=== PATIENT | male | born 1955 | race Caucasian/White ===

== ENCOUNTER → 2017-04-17 08:42 | Outpatient (CLI) | payer BC ==
[2015-08-30 12:17] VITALS: BMI 28.2
[~2017-04-17 08:42] MED LIST: AMITRIPTYLINE H50 MG PO; FLAGYL500 MG PO; FLOMAX0.4 MG PO; HYDROCHLOROTH12.5 M1 PO; HYDROCODONE-APA1 TAB PO; LEVAQUIN500 MG PO; PRAVACHOL40 MG PO; REGLAN10 MG PO; ROBAXIN-750750 MG PO
== END | disposition home or self-care (01) ==
LOC: D.RAD 08:42
DX: K59.00 Constipation, unspecified (principal)

== ENCOUNTER 2018-03-04 07:40 | Day surgery (SDC) | payer BC ==
[2018-03-03 10:05] LABS: HEMATOCRIT 44.7 % (42.0-54.0); HEMOGLOBIN 15.6 g/dL (13.5-17.5); MCH 30.8 pg (26.0-34.0); MCHC 34.9 g/dL (31.0-37.0); MCV 88.3 fL (80.0-100.0); MEAN PLATELET VOLUME 10.4 fL (7.4-10.4); RBC 5.06 10x6/uL (4.20-6.10); RDW 12.9 % (11.5-14.5); WBC 8.9 10x3/uL (4.8-10.8)
[2018-03-03 10:16] LABS: CALC OSMOLALITY 274 mosm/kg (275-300); CALCIUM 9.2 mg/dL (8.5-10.1); CARBON DIOXIDE 25.6 mmol/L (21.0-32.0); CHLORIDE - SERUM 100 mmol/L (98-107); CREATININE - SERUM 0.9 mg/dL (0.6-1.3); GLUCOSE 145 mg/dL (74-106); POTASSIUM - SERUM 4.2 mmol/L (3.5-5.1); SODIUM 135 mmol/L (136-145); UREA NITROGEN 18 mg/dL (7-18); eGFR NON AFRICAN AMERICAN > 90 mL/min (90-120)
[~2018-03-04] VITALS: Ht 185.4 cm; Wt 97.5 kg
--- NOTE | ~2018-03-04 | OP ---
PATIENT NAME: MICHAEL GARCIA MEDICAL RECORD: [id number] LOCATION:[facility] ADMISSION DATE: SURGEON: BJORN BOBO MD DATE OF OPERATION: 03/04/2018 SURGEON: Bjorn Bobo MD ANESTHESIA: MAC by Dr. Deuce Roberts. PREOPERATIVE DIAGNOSIS: Elevated PSA 2.14, on finasteride. PROCEDURE: Transrectal ultrasound and prostate biopsy. FINDINGS: 43 gram prostate, no hypoechoic areas. SPECIMENS: Prostate biopsy. ESTIMATED BLOOD LOSS: Minimal. CLINICAL HISTORY: This is a 62-year-old male, who has obstructive BPH symptoms. When I first saw him, he had a PSA of 4.02. He did not wish to have a prostate biopsy at that time. I started him on finasteride and tamsulosin for 6 months. His voiding has improved. His latest PSA on finasteride is 2.14. Finasteride tends to cut the PSA in half and therefore if he was not on finasteride, his PSA would be 4.28. We will be obtaining a prostate biopsy to make sure he does not have prostate cancer. He is allergic to LYRICA and OXYCODONE. We gave him Ance[facility] IV destination coordinator to the OR. DESCRIPTION OF PROCEDURE: The patient was given IV sedation. He was placed into dorsal lithotomy position. The transrectal ultrasound probe was introduced and prostate size measurements were obtained. We had a size of 43 grams. Sextant biopsies were obtained with at least 3 cores from each sextant. Once all the biopsies were obtained, the procedure was terminated. The patient was brought to the preoperative holding area and he will be going home today. I will see him in followup next week to review the pathology results with him. TRANSINT:[id number] Voice Confirmation ID: [id number] DOCUMENT ID: [id number] BJORN BOBO MD at 1350 CC: [id number] DICTATION DATE: 03/04/18 1058 DATA ENTRY REPRESENTATIVE: 03/04/18 1220 [id number] [place] [address]
[~2018-03-04 07:40] MED LIST changes: -AMITRIPTYLINE H50 MG PO; +AMITRIPTYLINE100 MG PO; +METFORMIN HCL500 M1 PO; +OMEPRAZOLE20 M1 PO; +PROSCAR5 MG PO; +ZESTORETIC 10/11 TAB PO
[2018-03-04 08:20] VITALS: BP 115/64; Ht 185.4 cm; Wt 97.5 kg
== END 2018-03-04 12:25 | disposition home or self-care (01) ==
LOC: D.OPS 07:40 → D.PAN 09:30 → D.OPS 09:30
PROVIDERS: Anesthesiology
DX: R97.20 Elevated prostate specific antigen [PSA] (principal); Z01.812 Encounter for preprocedural laboratory examination